=== PATIENT | female | born 1995 | race Caucasian/White ===

== ENCOUNTER 2020-09-04 09:30 | Inpatient (IN) | payer OTHER, SELFPAY ==
[2020-09-04] VITALS (14 sets, daily range): BP systolic 107–140; BP diastolic 53–83; PULSE 79–111; RESP 12–20; TEMP 36.2–36.5; O2SAT 95–100; BMI 38.7
[2020-09-04] MEDS: Lactated Ringers 1,000 ML 999 ML IV (10:10)
[2020-09-04 10:19] LABS: Absolute Lymphocyte Count 2.54 X10^3/uL (0.83-4.51); Absolute Neutrophil Count 8.5 X10^3/uL (2.0-7.7); Basophil# 0.04 X10^3/uL; Basophil% 0.3 % (0-1); Eosinophil# 0.16 X10^3/uL; Eosinophils% 1.3 % (0-5); Hematocrit 37.5 % (37-47); Hemoglobin 12.2 g/dL (12.0-15.0); Lymphocyte # 2.54 X10^3/ul (0.83-4.51); Lymphocyte % 20.8 % (19-41); Mean Corp Hgb Conc 32.5 g/dL (32-36); Mean Corpuscular Hgb 28.2 pg (27.0-32.0); Mean Corpuscular Volume 86.6 fL (81-99); Monocyte% 6.6 % (0-10); NRBC Flagged by Analyzer 0 % (0-5); Neutrophil # 8.52 X10^3/uL (2.7-7.7); Neutrophil % 69.8 % (47-70); Platelet Count 263 K/mm3 (150-450); RBC Distribution Width CV 13.8 % (11.6-14.6); RBC Distribution Width SD 43.6 fl (35.1-43.9); Red Blood Count 4.33 M/mm3 (4.2-5.4); White Blood Count 12.2 K/mm3 (4.4-11.0)
[2020-09-04] MEDS: Acetaminophen 500 MG Tablet 1000 MG PO ×2 (10:52→17:13)
[2020-09-04] MEDS: Lactated Ringers 1,000 ML 150 ML IV (10:56)
--- NOTE | 2020-09-04 11:17 | PCM.HP.OB ---
HPI - General General Date of Admission: 09/04/20 HPI Narrative SHEFALI YANEZ, is a 25 F who presents for repeat c/s. NATALIIA is 09/09/2020 by first trimeter US alone [facility] Medical History (Updated 09/04/20 @ 11:[address] Bridget Rowell MD) Anxiety Chlamydia infection affecting Pre-eclampsia Allergy/AdvReac Type Severity Reaction Status Date / Time Penicillins Allergy PT UNSURE Verified 09/04/20 10:13 OF REACTION Social History Smoking Status: Never smoker History Elective abortions Hx Para 1 Spontaneous abortions Hx # Term Pregnancies Ectopic pregnancies Hx # Pregnancies Multiple births # of living children ROS Constitutional Constitutional: Denies fatigue, fever(s) or malaise Eyes Eyes: Denies change in vision ENT HEENT: Denies dizziness or headache(s) Cardiovascular Cardiovascular: Denies chest pain, dyspnea or lightheadedness Respiratory/Chest Respiratory/Chest: Denies cough or dyspnea Gastrointestinal Gastrointestinal: Denies change in bowel habits Genitourinary Genitourinary: Denies burning urination or genital lesions Integumentary Integumentary: Denies rash Neurologic Neurologic: Denies confusion, dizziness, headache(s), numbness or weakness Vital Signs Vital Signs Vital Signs: 09/04/20 10:36 Temperature 97.3 F L Temperature Source Temporal Pulse Rate 100 Respiratory Rate 20 H Blood Pressure 117/76 Blood Pressure Mean 89 Blood Pressure Source Monitor Blood Pressure Position Semi-Fowlers Blood Pressure Location Left Arm Pulse Ox 97 Oxygen Delivery Method Room Air Physical Exam Const alert and no apparent distress General Appearance: cooperative HEENT normocephalic Resp normal respiratory effort Cardio regular rate GI soft to palpation GI Narrative: gravid, nontender, appropriate for gestational age Extremity no calf tenderness General Extremity: edema Skin no wounds Rashes: No rashes noted Psych activity/motor behavior normal Assessment & Plan Assessment/Plan (1) Previous delivery affecting : Status: Acute Code(s): O34.219 - Maternal care for unspecified type scar from previous delivery Plan: 39 week 2 day for repeat c/s. R/B/A/P to repeat c/s were reviewed, questions were answered to her satisfaction and she desires to proceed. Her questions were answered to her satisfaction and she desires to proceed. Declines LARC or tubal, plans to use vasectomy for contraception. Consent signed. (2) 39 weeks gestation of : Status: Acute Code(s): Z3A.39 - 39 weeks gestation of
[2020-09-04] MEDS: Sodium Citrate/Citric Acid 30 ML UDC PO (12:01)
[2020-09-04] MEDS: Cefazolin 2 GM in 0.9% Normal Saline 100 ML IV (12:05)
--- NOTE | 2020-09-04 12:46 | OP.PCM_ITS ---
Report of Operation (OB) Information Final NATALIIA: 09/09/20 Final NATALIIA Source: US <20 weeks Gestational age: 39 Weeks and 2 Days Operative Information Date of Procedure: 09/04/20 Pre-Operative Diagnosis: 39 weeks, previous c/s, maternal obesity w/ BMI 38 Post-Operative Diagnosis: same field agent: Silviano Rosales Type of Anesthesia: Spinal Anesthesiologist: Leonor Santoro Indication Classification: Scheduled Procedure Type: low transverse Indications for : Repeat Elective Findings Description of Procedure: The patient was taken to the operating room. She was prepped and draped in the dorsal supine position with a leftward tilt. A Pfannenstiel skin incision was made approximately 2 cm above the symphysis pubis and carried through to underlying layer fascia with the scalpel. The fascia was incised incised in the midline and extended laterally with the Braxton scissors. The fascia was dissected off the superior portion of the rectus muscles with blunt and sharp dissection. The rectus muscles were in the midline and the peritoneum was entered [bluntly]. The peritoneal incision was stretched and the bladder blade was placed. The uterine incision was made in a low transverse fashion with the scalpel and extended superiorly and inferiorly with blunt dissection. [The amniotic membranes were ruptured bluntly and clear amniotic fluid returned]. The infant's head was brought to the incision in the flexed position and delivered without difficulty. The remainder of the infant was delivered with gentle traction and fundal pressure in the standard fashion. The mouth and nares were bulb suctioned. The cord was clamped and cut as the was stimulated. [Cord clamping was delayed]. The was handed off to the waiting nursing staff. The placenta was delivered with fundal massage and gentle traction in the standard fashion. The uterus was exteriorized and cleared of all clots and debris. [The cervix was dilated with a ring forcep]. The uterine incision was closed with #1 Vicryl in a running locked fashion. [A second layer of the same suture was used in an imbricating fashion.] The incision was examined and was found to be hemostatic. The uterus was placed back into the peritoneal cavity and hemostasis was again confirmed. The rectus muscles were examined and any bleeding was Bovie cauterized. [The parietal peritoneum and rectus muscles were closed en bloc with an 0 Vicryl running suture]. The surgical teams outer gloves were then changed. The rectus fascia was examined and any bleeding was Bovie cauterized and the rectus fascia was closed with [1 Vicryl] suture in a running standard fashion. The subcutaneous tissue was examining and any bleeding was Bovie cauterized. [The subcutaneous tissue was reapproximated with 3-0 Vicryl suture.] The skin was closed in a subcuticular fashion [by the BIBLICAL STUDIES PROFESSOR with me present in the labor and delivery suite]. [I performed the remainder of the procedure with assistance]. All sponge, lap, and needle counts were correct. The patient was taken to her room for recovery in a stable condition. Start time: 1222 End time:1300 Delivery time:1225 Presentation: Positive for Vertex Amniotic Membrane Rupture Type: Artificial Amniotic Fluid Description: Clear Placental Delivery Description: Spontaneous Placenta Disposition: [facility] Specimen(s) Sent to Pathology: none Cord Vessel Description: 3 Vessels Cord Entanglement: None Gender: Female (Calixto) (1 minute): 8 (5 minute): 9 Delayed Cord Clamping: Yes Drain: Rubio to straight drain Fluids Replaced: 900 cc Esitmated Blood Loss (mL): 600 Medications Given Antibiotic Given: Ancef 2 grams IV x1 Medications Given After Delivery: IV Pitocin Admit VTE Documentation VTE Present on Admission: No VTE Mechan Device Prophylaxis: SCD's VTE Pharm Prophylaxis Ordered: Yes
[2020-09-04] MEDS: Ketorolac 30 MG/ML Syringe IV ×2 (13:38→20:44)
[2020-09-04] MEDS: Oxytocin 30 units/NS 500 ml 30 UNITS/500 ML IV.SOLN 167 UNITS IV (13:44)
[2020-09-04] MEDS: DiphenhydrAMINE 25 MG Capsule PO (14:44)
[2020-09-04] MEDS: proCHLORPERazine 10 MG/2 ML Vial IV (14:57)
[2020-09-04] MEDS: Ondansetron 4 MG/2 ML Vial IV (16:22)
[2020-09-04] MEDS: Lactated Ringers 1,000 ML 100 ML IV (16:43)
[2020-09-04] MEDS: 0.9% Saline Lock 10 ML Syringe IV (20:44)
[2020-09-05] VITALS: BP 113/54; PULSE 92; RESP 18; TEMP 36.4; O2SAT 97
[2020-09-05] MEDS: Enoxaparin 40 MG/0.4 ML Syringe SC ×2 (02:24→09:32)
[2020-09-05] MEDS: Ketorolac 30 MG/ML Syringe IV ×2 (02:24→09:14)
[2020-09-05] MEDS: 0.9% Saline Lock 10 ML Syringe IV ×2 (02:24→09:14)
[2020-09-05 03:46] VITALS: BP 108/70; PULSE 99; RESP 18; TEMP 36.5; O2SAT 96
[2020-09-05 05:07] LABS: Hematocrit 34.9 % (37-47); Hemoglobin 11.2 g/dL (12.0-15.0); Mean Corp Hgb Conc 32.1 g/dL (32-36); Mean Corpuscular Hgb 28.7 pg (27.0-32.0); Mean Corpuscular Volume 89.5 fL (81-99); Mean Platelet Vol. 9.8 fl (6.2-12.0); Platelet Count 237 K/mm3 (150-450); RBC Distribution Width CV 13.6 % (11.6-14.6); RBC Distribution Width SD 44.2 fl (35.1-43.9); White Blood Count 12.7 K/mm3 (4.4-11.0)
[2020-09-05] MEDS: Acetaminophen 500 MG Tablet 1000 MG PO ×4 (05:08→17:50)
[2020-09-05 09:00] VITALS: BP 125/79; PULSE 91; RESP 18; TEMP 36.3
[2020-09-05] MEDS: Senna/Docusate Sodium 1 Tablet PO (09:15)
--- NOTE | 2020-09-05 11:54 | PCM.PN.OB ---
Subjective Subjective: Pain controlled Objective Data Objective Data Vital Signs: Vital Signs Temp Pulse Resp BP Pulse Ox 97.4 F L 91 18 125/79 H 96 09/05/20 09:00 09/05/20 09:00 09/05/20 09:00 09/05/20 09:00 09/05/20 03:46 Oxygen Delivery Method Room Air Weight: 226 lb Body Mass Index (BMI) 38.7 Intake & Output: Intake and Output for Last 24 Hours 09/03/20 09/04/20 09/05/20 23:59 23:59 23:59 Intake Total 3372.22 / 4100.55 1728.33 / 1728.33 Output Total 950 / 950 700 / 700 Balance 2422.22 / 3150.55 1028.33 / 1028.33 Lab / Micro Data Result Diagrams: 09/05/20 04:55 Labs: Laboratory Results - last 24 hr 09/05/20 04:55 WBC 12.7 H RBC 3.90 L Hgb 11.2 L Hct 34.9 L MCV 89.5 MCH 28.7 MCHC 32.1 RDW Std Deviation 44.2 H RDW Coeff of Kennedy 13.6 Plt Count 237 MPV 9.8 Physical Exam Const alert, oriented x3 and no apparent distress HEENT normocephalic GI soft to palpation, non-tender and non-distended GI Narrative: fundus firm, mid & below umbilicus Incision - bandage c/d/i Extremity normal to inspection and no calf tenderness Assessment & Plan Assessment/Plan (1) Previous delivery affecting : Status: Acute Code(s): O34.219 - Maternal care for unspecified type scar from previous delivery Plan: POD#1 Routine care Heme - HDS, CBC reviewed GI/ - no issues Routine care
[2020-09-05 12:25] VITALS: BP 115/75; PULSE 95; RESP 16; TEMP 36.8
[2020-09-05] MEDS: Naproxen 500 MG Tablet PO ×2 (15:17→22:35)
[2020-09-05 16:00] VITALS: BP 126/74; PULSE 90; RESP 16; TEMP 36.5
--- NOTE | 2020-09-05 17:16 | NURSING ---
PT has c/o headache most of the day, does not seem to respond to pain meds, ice pack to head and caffeine encouraged. Drank coffee and 3 cans of coke. Now requesting to talk to anesthesia. Dr. Segundo paged and pt info given.
[2020-09-05 20:19] VITALS: BP 119/74; PULSE 69; RESP 18; TEMP 36.3
[2020-09-05] MEDS: oxyCODONE 5 MG Tablet PO (20:49)
[2020-09-06] MEDS: Acetaminophen/Butalbital/Caffe 1 Tablet 2 TABLET PO ×3 (00:36→08:53)
[2020-09-06 02:55] VITALS: BP 131/80; PULSE 76; RESP 18; TEMP 36.3
[2020-09-06] MEDS: Naproxen 500 MG Tablet PO ×2 (06:13→14:17)
--- NOTE | 2020-09-06 08:54 | PCM.PN.OB ---
Subjective Subjective: Patient w/ spinal WILSON. Improved since on fioricet. +flatus, no Bm. [place]. regular diet. Average lochia Objective Data Objective Data Vital Signs: Vital Signs Temp Pulse Resp BP Pulse Ox 97.3 F L 76 18 131/80 H 96 09/06/20 02:55 09/06/20 02:55 09/06/20 02:55 09/06/20 02:55 09/05/20 03:46 Oxygen Delivery Method Room Air Weight: 102.512 kg Body Mass Index (BMI) 38.7 Intake & Output: Intake and Output for Last 24 Hours 09/04/20 09/05/20 09/06/20 23:59 23:59 23:59 Intake Total 3372.22 / 4100.55 1728.33 / 1728.33 Output Total 950 / 950 700 / 700 Balance 2422.22 / 3150.55 1028.33 / 1028.33 Lab / Micro Data Result Diagrams: 09/05/20 04:55 Physical Exam Const alert and no apparent distress General Appearance: cooperative GI GI Narrative: soft, moderate distention, fundus firm, appropriately tender. Abdominal bandage clean dry and intact Extremity General Extremity: edema bilateral (trace) lower extremity (2+ DTRs, no clonus) Details: trace Assessment & Plan Assessment/Plan (1) delivery, delivered, current hospitalization: Status: Acute Code(s): O82 - Encounter for delivery without indication Plan: POD#2 doing well from surgery standpoint, has spinal WILSON. Will see how she tolerates this today w/ ambulation and shower Infant doing well maybe home later today if able to tolerate spinal WILSON, otherwise normal postop instruction
[2020-09-06 08:55] VITALS: BP 135/73; PULSE 89; RESP 14; TEMP 36.8
--- NOTE | 2020-09-06 09:07 | PCM.DC.SUM ---
Providers Date of Admission: 09/04/20 Primary Care Physician: Dr. Kahlil Harris MD Reason For Visit: repeat c sectION Diagnosis Discharge Diagnosis (1) delivery, delivered, current hospitalization: Status: Acute Code(s): O82 - Encounter for delivery without indication Medications at Discharge Home Medications acetaminophen 1,000 mg PO Q6 #0 tab 09/06/20 jucjoapngu-kyvhtpyzsisdx-qybh 2 cap PO Q6H PRN #30 cap 09/06/20 naproxen 375 mg PO TID PRN #40 tab 09/06/20 Hospital Course Operations - (repeat LTCS) Procedures None Summary of Care Provided Hospital Course: Patient admitted for c/s. Performed without difficulty. On POD#2 Doing well other than postop spinal WILSON. D/c home w/ routine instructions and prescriptions. ABG / Lab / Microbiology Data Result Diagrams: 09/05/20 04:55 D/C Instructions Discharge Diet: No restrictions Discharge Activity: Return to Normal Activity, May Not Drive (for 2 weeks.), [address] while taking narcotic pain medications., May Shower and May Take a Tub Bath (in 7 days.) May resume sexual activity in: 4-6 weeks Additional Activity Instructions: Nothing in the vagina for 4-6 weeks. You may return to work/school in 6 weeks. Call your doctor if your incision/area has: Continuous Slow Oozing, Sudden Increased Bleeding, Increased Pain/ Swelling, Increased Redness and Foul Smelling Discharge Call your doctor if you observe: Fever of 101 or Higher and Using more than one pad per hour (for 2 hours) Suture Line Care: Avoid Pulling/Pushing and Avoid Pinching/Bending Cleanse incision/area with: Keep Dressing Clean & Dry Please Follow Up With: Bridget Rowell MD When: Call to make an appointment for an incision check in 1-2 [phone]. You will need a post check in 6 weeks. Meaningful Use Info Meaningful Use Diagnoses (Choose all that apply): None applicable Discharge Plan Admission Admit Date/Time: 09/04/20 09:30 Attending Provider: Bridget Rowell Primary Care Provider: Kahlil Harris Instructions Patient Instructions: After a Discharge Orders/Prescriptions Prescriptions: New mvwndxkrrs-pdhcxsclbwlod-wrwt 50-325-40 mg capsule 2 cap PO Q6H PRN Qty: 30 RF: 0 acetaminophen 500 mg Tablet 1,000 mg PO Q6 Qty: 0 RF: 0 naproxen 375 mg tablet 375 mg PO TID PRN (Reason: pain) Qty: 40 RF: 0 Referrals: Kahlil Harris MD [Primary Care Provider] - Disposition Disposition (needs filled in before D/C Order can be placed): Home, self care
[2020-09-06] MEDS: Senna/Docusate Sodium 1 Tablet PO (10:29)
[2020-09-06] MEDS: oxyCODONE 5 MG Tablet PO (10:29)
--- NOTE | 2020-09-06 12:36 | NURSING ---
pt phones this nurse to express desire to proceed with blood patch. Dr. Dexter notified. Dr. Dexter states he will be at pt' s bedside in 30 minutes
[2020-09-06] MEDS: Acetaminophen 500 MG Tablet 1000 MG PO (12:42)
[2020-09-06] MEDS: Enoxaparin 40 MG/0.4 ML Syringe SC (12:43)
[2020-09-06 12:55] VITALS: BP 143/74; PULSE 80; RESP 18; TEMP 37
--- NOTE | 2020-09-06 15:11 | CASEMGMT ---
Date/Time of referral: 09/04/20, 17:03 Referred By: Ky Prieto MD Date/Time of Intervention: 09/06/20, 14:30pm Reason for referral: Mom with anxiety(no meds currently) History obtained from: FRANCISCO MCCAULEY Household Composition: MOB, NOLAB, 3yr old Jillian and now baby Calixto MOB and FOMoni together since January of 2015 Parent/Guardian Status: MOB and FOB guardians of baby Medical History: baby: Born 09/04/20 at 12:25pm, Birthweight 3855 grams. Apgars 7 and 9. MOB just had a blood patch due to headaches. Educational Status: MOB graduated from high school with some college credits. FOB has enough credits for an Associates Degree. Financial Status: No financial concerns. Both MOB and FOB work for [employer]. MOB plans to return to work likely after 10 weeks. Children will go to [facility]. Infant Supplies: They have all needed supplies including car seat, bassinet, crib, clothing, diapers, bottles. They do not have formula however MOB is and is confident that this will go well, it went well with her first baby and it's going well so far w/kervin De Luna. Childcare/Caregivers: MOB and FOB, [facility], PARISA's mother helps also. She will be staying with them for about one month once they get home from the hospital to help with the children. Transportation: They have vehicles. Programs/Agencies involved: None Children's Services/Legal issues: None Behavioral Health Issues: Substance abuse--none for FOB or MOB. Mental Health--FOB denies. PARISA states does have anxiety, but states it's more of a momentary thing where she gets overwhelmed and is then fine. She has never been in counseling or on medication, has never felt the need for it. At present she is reporting to not be struggling with anxiety. She reports no safety concerns. Family/Social Stressors: They states have no family or social stressors at this time. Support Systems: PARISA's mother, brother and sister in law Depression and Anxiety/Shaken Baby/Safe Sleeping/Help Me Grow: WILLIAM gave information on all of these topics and reviewed them w/MOB. WILLIAM also gave MOB a list of resources for [facility], and lists for both counseling and psychiatry near where they live, off of their insurance website. SW spoke to MOB and FOB in particular about anxiety and depression, warning signs. SW encourage MOB if she is having increased anxiety or symptoms of depression to reach out to her PCP or [facility] to discuss with them if medication would be appropriate. SW also encourage MOB follow up on info given by this SW regarding counseling should she be struggling w/anxiety and depression. SW also gave MOB 24hour hotline if needed. Assessment: MOB laying flat as she just had a blood patch done. She was appropriate, talkative, maintained eye contact, answered all questions. FOB holding baby while SW in the room, appropriate and very attentive to the baby, while also participating in our conversation occasionally. Plan: Baby home w/MOB and FOB at discharge, no concerns at this time. YAMILETH Edwards
[2020-09-06 15:15] VITALS: BP 118/72; PULSE 91; RESP 16; TEMP 36.6
--- NOTE | 2020-09-06 15:24 | NURSING ---
1355 (late entry) Dr. Dexter at bedside. pt prepped for blood patch. pt tolerated well. after blood patch, pt placed in low fowlers position
== END 2020-09-06 17:40 | disposition home or self-care (01) | DRG 788 ==
PROVIDERS: Admitting Provider Obstetrics & Gynecology; PCP Family Medicine; Visit Provider Obstetrics & Gynecology
PROC: (CPT 59514; principal; 2020-09-04 11:45)
DX: O34.211 Maternal care for low transverse scar from previous cesarean delivery (principal); O99.214 Obesity complicating childbirth; E66.8 Other obesity; O89.4 Spinal and epidural anesthesia-induced headache during the puerperium; Z3A.39 39 weeks gestation of pregnancy; Z37.0 Single live birth; Z87.59 Personal history of other complications of pregnancy, childbirth and the puerperium
CPT/HCPCS: 85025; 85027; 86850; 86900; 86901; 99218; J7120; A4216; G0378; J2405